=== PATIENT | female | born 1970 | race Two or more races ===

== ENCOUNTER 2024-09-23 13:45 | Emergency (ER) | payer OTHER ==
[~2024-09-23] VITALS: Ht 162.6 cm; Wt 45.2 kg
[2024-09-23 14:26] LABS: BASOPHILS % (AUTO) 0.5 % (0.0-2.0); EOSINOPHILS % (AUTO) 0.1 % (1.0-6.0); LYMPHOCYTES # (AUTO) 1.5 K/uL (1.0-4.8); LYMPHOCYTES % (AUTO) 22.8 % (22.0-44.0); MEAN CORPUSCULAR HEMOGLOBIN 32.4 pg (26.0-34.0); MEAN CORPUSCULAR HGB CONC 33.3 G/dL (31.0-37.0); MEAN CORPUSCULAR VOLUME 97 fL (80-100); MONOCYTES # (AUTO) 0.3 K/uL (0.1-1.0); NEUTROPHILS # (AUTO) 4.8 K/uL (1.8-7.7); NEUTROPHILS % (AUTO) 71.6 % (40.0-70.0); PLATELET COUNT (AUTO) 248 K/uL (150-450); RED CELL DISTRIBUTION WIDTH 14.5 % (11.5-14.5); WHITE BLOOD COUNT (AUTO) 6.6 K/uL (4.5-11.0)
[2024-09-23 14:32] LABS: ANION GAP 6 mmol/L (8-16); CALCIUM, TOTAL 9.2 mg/dL (8.8-10.5); CARBON DIOXIDE 31 mmol/L (22-29); CHLORIDE 102 mmol/L (98-107); CREATININE 0.55 mg/dL (0.60-1.30); GLOMERULAR FILTR. RATE CALC > 60 mL/min (>60); GLUCOSE,RANDOM 125 mg/dL (70-110); POTASSIUM 3.7 mmol/L (3.5-5.1); SODIUM SERUM 139 mmol/L (136-145); UREA NITROGEN, BLOOD 13 mg/dL (7-18)
[2024-09-23 14:43] LABS: ALCOHOL, BLOOD (SERUM) < 3 mg/dL (0-10)
[2024-09-23 14:46] VITALS: TEMP 98.7
[2024-09-23] MEDS: LORazepam 2 MG/ML VIAL IM ONE (14:53)
[2024-09-23 16:05] LABS: COVID AG,FIA SOURCE NASAL SWAB
[2024-09-23 16:24] LABS: SARS-COV2 (COVID) ANTIGEN,FIA Negative (Negative)
[2024-09-23] MEDS: DiphenhydrAMINE HCL 50 MG/ML VIAL IM ONE (16:35)
[2024-09-23 19:25] LABS: APPEARANCE,URINE TURBID (CLEAR); BILIRUBIN,URINE NEGATIVE (NEGATIVE); COLOR,URINE LIGHT YELLOW (YELLOW); GLUCOSE, URINE (UA) NEGATIVE (NEGATIVE); KETONES,URINE NEGATIVE (NEGATIVE); LEUKOCYTE ESTERASE ,URINE SMALL (NEGATIVE); NITRATE,URINE NEGATIVE (NEGATIVE); OCCULT BLOOD,URINE NEGATIVE (NEGATIVE); PH,URINE 7.5 (5.0-8.0); PH,URINE DRUG SCREEN 7.5 (5.0-8.0); PROTEIN,URINE NEGATIVE (NEGATIVE); SPECIFIC GRAVITIY, URINE 1.013 (1.003-1.030); UROBILINOGEN,URINE <=1.0 mg/dL (<=1.0)
[2024-09-23 19:31] LABS: AMPHET/METH SCREEN,URINE NEGATIVE (NEGATIVE); BARBITURATE SCREEN, URINE NEGATIVE (NEGATIVE); BENZODIAZEPINES SCREEN,URINE NEGATIVE (NEGATIVE); CANNABINOID SCREEN,URINE NEGATIVE (NEGATIVE); COCAINE SCREEN,URINE NEGATIVE (NEGATIVE); METHADONE SCREEN, URINE NEGATIVE (NEGATIVE); OPIATE SCREEN,URINE NEGATIVE (NEGATIVE); PHENCYCLIDINE SCREEN,URINE NEGATIVE (NEGATIVE)
[2024-09-23 19:43] LABS: ALCOHOL, URINE DRUG SCREEN NEGATIVE (NEGATIVE)
[2024-09-23 19:48] LABS: AMORPHOUS SEDIMENT,UR Many /LPF (None Seen); BACTERIA,URINE None Seen /HPF (None Seen); RBC,URINE None Seen /HPF (0-2); SQUAMOUS EPITHELIAL CELL,UR Few /LPF (None Seen)
[2024-09-23 21:57] VITALS: BP 145/95; PULSE 104; RESP 20; O2SAT 96
== END 2024-09-23 21:58 | disposition short-term general hospital (02) ==
LOC: EDSEX 13:47 → EMS 13:47 → EDBD 13:47 → EMS 21:58
DX: F31.9 Bipolar disorder, unspecified (principal); F41.9 Anxiety disorder, unspecified; R44.0 Auditory hallucinations; Z20.822 Contact with and (suspected) exposure to COVID-19
CPT/HCPCS: 99285; 87426; 80048; 81001; 85025; 36415; 96372; 80307; G0480; J1200; J2060

== ENCOUNTER 2024-12-30 10:40 | Inpatient (IN) | payer OTHER ==
[2025-01-07 20:30] VITALS: BP 132/99; PULSE 98; RESP 18; TEMP 97.9; O2SAT 97
[2025-01-07] MEDS ORDERED: ONDANSETRON HCL 4 MG/2 ML VIAL IVP PRN (22:00)
[2025-01-07] MEDS ORDERED: ACETAMINOPHEN 325 MG TABLET PO PRN (22:00)
[2025-01-07] MEDS ORDERED: CHOL25TA4 PO (22:04)
[2025-01-07] MEDS ORDERED: [UNRECOGNIZED DRUG - CODE] PR (22:04)
[2025-01-07] MEDS ORDERED: SENN-395 PO (22:04)
[2025-01-07] MEDS ORDERED: THIA100T80 PO (22:04)
[2025-01-07] MEDS ORDERED: ACET-2247 PO (22:04)
[2025-01-07] MEDS ORDERED: ONDA4VIA60 IVP (22:04)
[2025-01-07] MEDS ORDERED: NALO0.4V7 IVP (22:04)
[2025-01-07] MEDS ORDERED: LORA2I IV (22:04)
[2025-01-07] MEDS ORDERED: PROG100C24 PO (22:04)
[2025-01-07] MEDS ORDERED: BISA10SU11 PR (22:04)
[2025-01-07] MEDS ORDERED: MELA3TAB89 PO (22:04)
[2025-01-07] MEDS ORDERED: MULT-1303 PO (22:04)
[2025-01-07] MEDS ORDERED: POLY17PO47 PO (22:04)
[2025-01-07] MEDS ORDERED: LORA2TAB18 PO (22:04)
[2025-01-07] MEDS ORDERED: HYDR-4072 PO (22:04)
[2025-01-07] MEDS ORDERED: HYDR-4062 PO (22:04)
[2025-01-07] MEDS ORDERED: LACT10SO85 PO (22:04)
[2025-01-07] MEDS ORDERED: HEPA500018 SQ (22:04)
[2025-01-07] MEDS: HEPARIN SODIUM,PORCINE 5,000 UNITS/ML VIAL SQ SCH (23:07)
[2025-01-08 05:45] VITALS: BP 96/61; PULSE 69; RESP 18; TEMP 97.5; O2SAT 100
[2025-01-08] MEDS ORDERED: LACTULOSE 20 GM/30 ML SOLUTION UDCUP PO PRN (06:00)
[2025-01-08] MEDS ORDERED: BISACODYL 10 MG RECTAL RECTAL SUPPOSITORY PR PRN (06:00)
[2025-01-08] MEDS ORDERED: NALOXONE HCL 0.4 MG/ML VIAL IVP SCH (06:00)
[2025-01-08] MEDS ORDERED: MELATONIN 3 MG TABLET PO PRN (06:00)
[2025-01-08 09:00] VITALS: BP 97/63; PULSE 78; RESP 16; TEMP 98.1; O2SAT 100
[2025-01-08] MEDS: SENNOSIDES/DOCUSATE SODIUM 8.6-50 MG TABLET PO SCH (09:00)
[2025-01-08] MEDS: THIAMINE 100 MG TABLET PO SCH (09:00)
[2025-01-08] MEDS: DOCUSATE SODIUM 100 MG CAPSULE PO SCH (09:00)
[2025-01-08] MEDS: MULTIVITAMINS WITH MINERALS, THERAPEUTIC TABLET PO SCH (09:00)
[2025-01-08] MEDS: POLYETHYLENE GLYCOL 3350 17 GM PACKET PO SCH (09:00)
[2025-01-08] MEDS: CHOLECALCIFEROL (VIT D3) 1,000 UNITS [25 MCG] TABLET PO SCH (09:00)
[2025-01-08] MEDS: LORazepam 2 MG TABLET PO SCH (09:11)
[2025-01-08] MEDS: DIVALPROEX SODIUM 500 MG DR TABLET PO SCH (09:30)
[2025-01-08] MEDS: SODIUM CHLORIDE 0.9% 1,000 ML IV ONE (11:06)
[2025-01-08] MEDS ORDERED: ESTR1PAT30 TD (11:23)
[2025-01-08] MEDS ORDERED: ESTR1VAG10 VG (11:23)
[2025-01-08 12:00] VITALS: RESP 18; O2SAT 100
[2025-01-08 12:06] VITALS: BP 95/68; PULSE 66; RESP 18; TEMP 97.3; O2SAT 98
[2025-01-08 12:40] LABS: APPEARANCE,URINE CLEAR (CLEAR); BILIRUBIN,URINE NEGATIVE (NEGATIVE); COLOR,URINE LIGHT YELLOW (YELLOW); GLUCOSE, URINE (UA) NEGATIVE (NEGATIVE); KETONES,URINE NEGATIVE (NEGATIVE); LEUKOCYTE ESTERASE ,URINE NEGATIVE (NEGATIVE); NITRATE,URINE NEGATIVE (NEGATIVE); OCCULT BLOOD,URINE NEGATIVE (NEGATIVE); PROTEIN,URINE NEGATIVE (NEGATIVE); UROBILINOGEN,URINE <=1.0 mg/dL (<=1.0)
[2025-01-08 20:00] VITALS: BP 132/87; PULSE 114; RESP 18; TEMP 97.5; O2SAT 98
[2025-01-08] MEDS: RisperiDONE 2 MG TABLET PO SCH (20:01)
[2025-01-08] MEDS: OLANZapine 7.5 MG TABLET PO SCH (20:01)
[2025-01-08] MEDS: PROGESTERONE, MICRONIZED 100 MG CAPSULE PO SCH (20:14)
[2025-01-08] MEDS ORDERED: OLANZapine 5 MG TABLET PO SCH (21:00)
[2025-01-09 03:21] VITALS: PULSE 60; RESP 18; TEMP 97.3; O2SAT 100
[2025-01-09 05:27] VITALS: BP 97/79; RESP 19; O2SAT 98
[2025-01-09 08:40] VITALS: BP 98/65; PULSE 74; RESP 18; TEMP 97.3; O2SAT 100
[2025-01-09 16:18] VITALS: BP 104/63; PULSE 63; RESP 18; TEMP 98.4; O2SAT 100
[2025-01-09] MEDS ORDERED: RisperiDONE 3 MG TABLET PO SCH (21:00)
== END 2025-01-09 15:30 | DRG 641 ==
LOC: 6S 01-07 20:53
PROVIDERS: ADMIT Internal Medicine; ATTEND Internal Medicine
DX: E86.0 Dehydration (principal); Z68.43 Body mass index [BMI] 50.0-59.9, adult; R62.7 Adult failure to thrive; F32.9 Major depressive disorder, single episode, unspecified; F06.1 Catatonic disorder due to known physiological condition; F41.9 Anxiety disorder, unspecified; Z79.899 Other long term (current) drug therapy
CPT/HCPCS: 81003; 97162; 97530; J1644

== ENCOUNTER 2025-01-09 10:35 | Inpatient (IN) | payer OTHER ==
[~2025-01-09] VITALS: Ht 157.5 cm; Wt 49.5 kg
[~2025-01-09 10:35] MED LIST: ACET-2247 PO; BISA10SU11 PR; CHOL25TA4 PO; ESTR1PAT30 TD; ESTR1VAG10 VG; HEPA500018 SQ; HYDR-4062 PO; HYDR-4072 PO; LACT10SO85 PO; LORA2I IV; LORA2TAB18 PO; MELA3TAB89 PO; MULT-1303 PO; NALO0.4V7 IVP; ONDA4VIA60 IVP; POLY17PO47 PO; PROG100C24 PO; SENN-395 PO; THIA100T80 PO; [UNRECOGNIZED DRUG - CODE] PR
[2025-01-09] MEDS ORDERED: ZOLPIDEM TARTRATE 10 MG TABLET PO PRN (12:15)
[2025-01-09 17:16] VITALS: BP 135/91; PULSE 105; RESP 18; TEMP 97.5; O2SAT 96
[2025-01-09] MEDS ORDERED: ONDANSETRON 4 MG TABLET PO PRN (23:00)
[2025-01-09] MEDS ORDERED: BACITRACIN 28 GM OINTMENT TP PRN (23:00)
[2025-01-09] MEDS ORDERED: PETROLATUM,WHITE 28 GM JELLY TP PRN (23:00)
[2025-01-09] MEDS ORDERED: OMEPRAZOLE 20 MG CAPSULE PO PRN (23:00)
[2025-01-09] MEDS ORDERED: MAG HYDROX/ALUMINUM HYD/SIMETH ES 30 ML SUSPENSION UDCUP PO PRN (23:00)
[2025-01-09] MEDS ORDERED: ACETAMINOPHEN 325 MG TABLET PO PRN (23:00)
[2025-01-09] MEDS ORDERED: DOCUSATE SODIUM 100 MG CAPSULE PO PRN (23:00)
[2025-01-09] MEDS ORDERED: LACTULOSE 20 GM/30 ML SOLUTION UDCUP PO PRN (23:00)
[2025-01-09] MEDS ORDERED: IBUPROFEN 600 MG TABLET PO PRN (23:00)
[2025-01-09] MEDS ORDERED: MAGNESIUM HYDROXIDE SUSPENSION 30 ML UDCUP PO PRN (23:00)
[2025-01-09] MEDS ORDERED: LOPERAMIDE HCL 2 MG CAPSULE PO PRN (23:00)
[2025-01-09] MEDS ORDERED: BENZOCAINE/MENTHOL [CEPACOL] LOZENGE PO PRN (23:00)
[2025-01-10 00:19] VITALS: BP 112/75; PULSE 66; RESP 17; TEMP 97.8; O2SAT 95
[2025-01-10 07:50] LABS: COVID AG,FIA SOURCE NASAL SWAB
[2025-01-10 08:14] LABS: SARS-COV2 (COVID) ANTIGEN,FIA Negative (Negative)
[2025-01-10] MEDS: CHOLECALCIFEROL (VIT D3) 1,000 UNITS [25 MCG] TABLET PO SCH (09:00)
[2025-01-10] MEDS: THIAMINE 100 MG TABLET PO SCH (09:00)
[2025-01-10] MEDS: MULTIVITAMINS WITH MINERALS, THERAPEUTIC TABLET PO SCH (09:00)
[2025-01-10] MEDS: POLYETHYLENE GLYCOL 3350 17 GM PACKET PO SCH (09:00)
[2025-01-10] MEDS: SENNOSIDES/DOCUSATE SODIUM 8.6-50 MG TABLET PO SCH (09:00)
[2025-01-10 11:52] VITALS: BP 121/94; PULSE 130; RESP 16; TEMP 97.2; O2SAT 98
[2025-01-10] MEDS: LORazepam 2 MG/ML VIAL IM ONE ×2 (12:56→13:30)
[2025-01-10 13:23] VITALS: BP 135/91; PULSE 131; RESP 18; O2SAT 97
[2025-01-10 13:51] VITALS: BP 100/68; PULSE 117; RESP 16; O2SAT 98
[2025-01-10] MEDS: PROGESTERONE, MICRONIZED 100 MG CAPSULE PO SCH (21:20)
[2025-01-10 21:31] VITALS: BP 94/62; PULSE 91; RESP 18; TEMP 98.4; O2SAT 98
[2025-01-11 08:00] VITALS: BP 94/63; PULSE 16; PULSE 77; RESP 18; TEMP 99; O2SAT 98
[2025-01-11 09:59] LABS: APPEARANCE,URINE HAZY (CLEAR); GLUCOSE, URINE (UA) NEGATIVE (NEGATIVE); LEUKOCYTE ESTERASE ,URINE SMALL (NEGATIVE); NITRATE,URINE NEGATIVE (NEGATIVE); OCCULT BLOOD,URINE NEGATIVE (NEGATIVE); SPECIFIC GRAVITIY, URINE 1.024 (1.003-1.030)
[2025-01-11 10:15] VITALS: BP 90/60; PULSE 17; PULSE 81; RESP 17; TEMP 97.8; O2SAT 98
[2025-01-11 10:23] LABS: SQUAMOUS EPITHELIAL CELL,UR Many /LPF (None Seen)
[2025-01-11] MEDS: LORazepam 2 MG/ML VIAL IM ONE (13:34)
[2025-01-11] MEDS: BENZTROPINE MESYLATE 2 MG TABLET PO SCH (20:30)
[2025-01-11 22:56] VITALS: BP 97/68; PULSE 92; RESP 18; TEMP 97.2; O2SAT 100
[2025-01-12 10:06] VITALS: BP 94/63; PULSE 67; RESP 18; TEMP 97.5; O2SAT 99
[2025-01-12 21:40] VITALS: BP 90/54; PULSE 65; RESP 18; TEMP 97.3; O2SAT 99
[2025-01-13 09:35] VITALS: BP 95/60; PULSE 75; RESP 17; TEMP 97.4; O2SAT 98
[2025-01-13] MEDS ORDERED: HALO10TA21 PO (16:54)
[2025-01-13] MEDS ORDERED: BENZ2TAB84 PO (16:55)
[2025-01-13] MEDS ORDERED: TRAZ-252 PO (16:55)
[2025-01-13 22:54] VITALS: BP 99/87; PULSE 70; RESP 18; TEMP 97.8; O2SAT 97
[2025-01-14] MEDS: ALBUTEROL SULFATE HFA 90 MCG/PUFF 8 GM INHALER IH PRN (05:57)
[2025-01-14 06:13] VITALS: BP 89/57; PULSE 69; RESP 18; O2SAT 99
[2025-01-14 06:49] VITALS: BP 94/54; PULSE 69; RESP 18; O2SAT 98
[2025-01-14] MEDS ORDERED: [UNRECOGNIZED DRUG - CODE] PO (08:16)
[2025-01-14 11:08] VITALS: BP 103/59; PULSE 71; RESP 17; TEMP 97.8; O2SAT 100
[2025-01-14] MEDS: FLUCONAZOLE 150 MG TABLET PO ONE (14:28)
[2025-01-14 21:27] VITALS: BP 99/66; PULSE 85; RESP 18; O2SAT 97
[2025-01-14 22:20] VITALS: BP 106/56; PULSE 75; RESP 18; O2SAT 99
[2025-01-15 08:35] VITALS: PULSE 71; RESP 18; TEMP 97.5; O2SAT 97
[2025-01-15 09:06] VITALS: BP 103/89; PULSE 74
== END 2025-01-15 13:30 | disposition home or self-care (01) | DRG 885 ==
LOC: 3EI 16:00
PROVIDERS: ADMIT Psychiatry & Neurology Psychiatry; ATTEND Psychiatry & Neurology Psychiatry
DX: F20.9 Schizophrenia, unspecified (principal); N39.0 Urinary tract infection, site not specified; Z20.822 Contact with and (suspected) exposure to COVID-19; F32.A Depression, unspecified; F41.9 Anxiety disorder, unspecified; G47.00 Insomnia, unspecified; K21.9 Gastro-esophageal reflux disease without esophagitis; K59.00 Constipation, unspecified; N95.9 Unspecified menopausal and perimenopausal disorder; Z79.899 Other long term (current) drug therapy
CPT/HCPCS: 81001; 87081; 87086; J2060; J3535

== ENCOUNTER 2025-02-10 17:35 | Inpatient (IN) | payer OTHER ==
[~2025-02-10] VITALS: Ht 162.6 cm; Wt 49.4 kg
[~2025-02-10 17:35] MED LIST changes: -ACET-2247 PO; +BENZ2TAB84 PO; -BISA10SU11 PR; -CHOL25TA4 PO; -ESTR1PAT30 TD; -ESTR1VAG10 VG; +HALO10TA21 PO; -HEPA500018 SQ; -HYDR-4062 PO; -HYDR-4072 PO; -LACT10SO85 PO; -LORA2I IV; -LORA2TAB18 PO; -MELA3TAB89 PO; -MULT-1303 PO; -NALO0.4V7 IVP; -ONDA4VIA60 IVP; -POLY17PO47 PO; -PROG100C24 PO; -SENN-395 PO; -THIA100T80 PO; +TRAZ-252 PO; +[UNRECOGNIZED DRUG - CODE] PO; -[UNRECOGNIZED DRUG - CODE] PR
[2025-02-10 18:49] VITALS: O2SAT 97
[2025-02-10 19:24] LABS: PLATELET COUNT (AUTO) 241 K/uL (150-450); RED BLOOD CELL COUNT(AUTO) 4.29 MIL/uL (4.00-5.20); RED CELL DISTRIBUTION WIDTH 13.7 % (11.5-14.5); WHITE BLOOD COUNT (AUTO) 5.2 K/uL (4.5-11.0)
[2025-02-10 19:32] LABS: CALCIUM, TOTAL 9.0 mg/dL (8.8-10.5); CREATININE 0.41 mg/dL (0.60-1.30); GLOMERULAR FILTR. RATE CALC > 60 mL/min (>60); GLUCOSE,RANDOM 102 mg/dL (70-110); SODIUM SERUM 141 mmol/L (136-145); UREA NITROGEN, BLOOD 9 mg/dL (7-18)
[2025-02-10 20:12] LABS: COVID AG,FIA SOURCE NASAL SWAB
[2025-02-10 20:35] LABS: SARS-COV2 (COVID) ANTIGEN,FIA Negative (Negative)
[2025-02-10 20:40] LABS: APPEARANCE,URINE CLEAR (CLEAR); GLUCOSE, URINE (UA) NEGATIVE (NEGATIVE); LEUKOCYTE ESTERASE ,URINE NEGATIVE (NEGATIVE); NITRATE,URINE NEGATIVE (NEGATIVE); OCCULT BLOOD,URINE TRACE (NEGATIVE); PH,URINE DRUG SCREEN 6.5 (5.0-8.0); SPECIFIC GRAVITIY, URINE 1.018 (1.003-1.030)
[2025-02-10 20:42] LABS: SQUAMOUS EPITHELIAL CELL,UR Few /LPF (None Seen)
[2025-02-10 20:47] LABS: AMPHET/METH SCREEN,URINE NEGATIVE (NEGATIVE); BARBITURATE SCREEN, URINE NEGATIVE (NEGATIVE); CANNABINOID SCREEN,URINE NEGATIVE (NEGATIVE); COCAINE SCREEN,URINE NEGATIVE (NEGATIVE); METHADONE SCREEN, URINE NEGATIVE (NEGATIVE)
[2025-02-10 20:48] LABS: ALCOHOL, URINE DRUG SCREEN NEGATIVE (NEGATIVE)
[2025-02-10] MEDS ORDERED: ZOLPIDEM TARTRATE 10 MG TABLET PO PRN (23:45)
[2025-02-11 04:43] VITALS: BP 105/78; PULSE 66; RESP 18; TEMP 97.5; O2SAT 95
[2025-02-11] MEDS ORDERED: NICOTINE 14 MG/24 HOUR PATCH TD PRN (06:30)
[2025-02-11] MEDS ORDERED: IBUPROFEN 400 MG TABLET PO PRN (06:30)
[2025-02-11] MEDS ORDERED: MAG HYDROX/ALUMINUM HYD/SIMETH ES 30 ML SUSPENSION UDCUP PO PRN (06:30)
[2025-02-11] MEDS ORDERED: ONDANSETRON 4 MG TABLET PO PRN (06:30)
[2025-02-11] MEDS ORDERED: GuaiFENesin/D-METHORPHAN [SUGAR-FREE] 200-20MG/10 ML SYRUP UDCUP PO PRN (06:30)
[2025-02-11] MEDS ORDERED: MAGNESIUM HYDROXIDE SUSPENSION 30 ML UDCUP PO PRN (06:30)
[2025-02-11] MEDS ORDERED: PETROLATUM,WHITE 28 GM JELLY TP PRN (06:30)
[2025-02-11] MEDS ORDERED: DOCUSATE SODIUM 100 MG CAPSULE PO PRN (06:30)
[2025-02-11] MEDS ORDERED: LOPERAMIDE HCL 2 MG CAPSULE PO PRN (06:30)
[2025-02-11 08:30] VITALS: BP 104/65; PULSE 73; RESP 17; TEMP 99; O2SAT 97
[2025-02-11] MEDS: FLUTICASONE PROPIONATE 50 MCG/SPRAY 16 GM NASAL SPRAY NASAL SCH (19:38)
[2025-02-11 19:39] VITALS: BP 148/83; PULSE 82; RESP 18
[2025-02-11] MEDS: BENZTROPINE MESYLATE 2 MG TABLET PO SCH (20:35)
[2025-02-11 20:43] VITALS: BP 112/72; PULSE 76; RESP 18; TEMP 98.2
[2025-02-12 08:16] VITALS: BP 100/60; PULSE 60; RESP 17; TEMP 97.9; O2SAT 99
[2025-02-12] MEDS: LORATADINE 10 MG TABLET PO SCH (11:45)
[2025-02-12] MEDS ORDERED: ALBUTEROL SULFATE HFA 90 MCG/PUFF 8 GM INHALER IH PRN (11:45)
[2025-02-12 20:06] VITALS: BP 109/75; PULSE 92; RESP 18; TEMP 97.6; O2SAT 98
[2025-02-13 08:24] VITALS: BP 104/66; PULSE 82; RESP 17; TEMP 98.2; O2SAT 96
[2025-02-13 09:07] VITALS: RESP 17
[2025-02-13] MEDS: ACETAMINOPHEN 325 MG TABLET PO PRN (09:07)
[2025-02-13] MEDS: ALBUTEROL SULFATE HFA 90 MCG/PUFF 8 GM INHALER IH PRN (10:00)
[2025-02-13 10:07] VITALS: RESP 16
[2025-02-13] MEDS ORDERED: FLUT16SP NASAL (12:34)
[2025-02-13] MEDS ORDERED: LORA10TA7 PO (12:35)
[2025-02-13] MEDS ORDERED: HALO2 PO (12:36)
[2025-02-13] MEDS ORDERED: TRAZ-184 PO (12:37)
== END 2025-02-13 14:21 | DRG 885 ==
LOC: EMS 17:35 → B2X 02-11 01:21 → UNDOADMIN 02-11 01:21
PROVIDERS: ADMIT Psychiatry & Neurology Child & Adolescent Psychiatry; ATTEND Psychiatry & Neurology Child & Adolescent Psychiatry
PROC: GZ56ZZZ Individual Psychotherapy, Supportive (ICD-10-PCS; 2025-02-11)
PROC: GZ58ZZZ Individual Psychotherapy, Cognitive-Behavioral (ICD-10-PCS; 2025-02-11)
PROC: GZ52ZZZ Individual Psychotherapy, Cognitive (ICD-10-PCS; principal; 2025-02-12)
DX: F25.1 Schizoaffective disorder, depressive type (principal); E44.0 Moderate protein-calorie malnutrition; Z68.1 Body mass index [BMI] 19.9 or less, adult; R45.851 Suicidal ideations; Z20.822 Contact with and (suspected) exposure to COVID-19; J30.9 Allergic rhinitis, unspecified; F41.9 Anxiety disorder, unspecified; Z79.899 Other long term (current) drug therapy
CPT/HCPCS: 80048; 80307; 81001; 85025; 87081; 99285; G0480; J3535